=== PATIENT | male | born 1955 | race Caucasian/White ===

== ENCOUNTER → 2018-03-06 | Outpatient (CLI) | payer BC ==
--- NOTE | 2018-03-07 11:21 | PCVCIMAG ---
APPROVED REPORT Study performed: 03/06/2018 15:38:57 Exam: Stress Echocardiogram Indication: CAD s/p CABG, Hypertension, Hyperlipidemia, Dyspnea Patient Location: Echo lab Stress Nurse: Siomara Puri RN Room #: 1 Status: routine Ht: 5 ft 4 in HR: 44 bpm BP: 122/60 mmHg Rhythm: Bifascicular block Medical History Medical History: CAD s/p CABG, Hyperlipidemia,bradycardia,HCL Cardiac Risk Factors: Hyperlipidemia Previous Cardiac Procedures: CABG Pretest Chest Pain Characteristics: No chest pain Exercise History: Physically active Procedure The patient underwent an Exercise Stress Test using the Nathaniel Protocol. Blood pressure, heart rate, and EKG were monitored. An Echocardiogram was performed by robotic maintenance technician in four stages in quad fashion. At peak stress, four selected images were obtained and placed side by side with resting images for comparison. Stress Test Details Stress Test: Exercise stress testing was performed using a Nathaniel protocol. HR Resting HR: 44 bpmMax Heart Rate (APMHR): 157 bpm Max HR Achieved: 153 bpmTarget HR (85% APMHR): 133 bpm % of APMHR: 97 Recovery HR: 71 bpm HR response to stress: Normal HR response to stress BP Resting BP: 122/60 mmHg Max BP: 148/60 mmHg Recovery BP: 134/54 mmHg ECG Resting ECG: Sinus Bradycardia Stress ECG: Sinus Rhythm ST Change: Eqivocally ischemic Arrhythmia: Rare PVCs Recovery ECG: Sinus Rhythm Recovery ST Change: Eqivocally ischemic Recovery Arrhythmia: None Clinical Reason for Termination: Maximal effort Stress Symptoms: none Exercise duration: 13 min sec Highest Stage Achieved: Stage 5: 5.0 mph at 18% grade. Exercise capacity: 17.2 METs Overall Exercise Capacity for Age: Excellent Scale: Active Angina Score: None Stress ECG Conclusion The patient exercised according to the NATHANIEL protocol for 13:00 153mins; achieving a work level of 17.2 METS. The resting heart rate of 44 bpm rosibel to a maximum heart rate of 153 bpm. This value represent 97 % of the maximal, age-predicted heart rate.The resting blood pressure of 122/60mmHg rosibel to a maximum of 148/60 mHg. The exercise test was stopped due to fatigue. Pre-Stress Echo The resting Echocardiogram showed normal left ventricular contractility with an estimated Ejection Fraction of about 55-60%. Normal wall motion in all segments on baseline images. Post-Stress Echo The stress Echocardiogram showed normal left ventricular contractility with an estimated Ejection Fraction of about 65-70%. Normal augmentation of wall motion in all segments on post stress images. Clinical No clinical or ECG evidence for ischemia. Conclusion Clinical Response: Non-ischemic Exercise Capacity: Superior Stress ECG Response: Non-ischemic Stress Echo Images: Non-ischemic Normal stress echocardiogram with maximal exercise stress. No echocardiographic evidence for exercise induced ischemia. No clinical, EKG or echocardiographic evidence for ischemia. <Conclusion> Normal stress echocardiogram with maximal exercise stress. No echocardiographic evidence for exercise induced ischemia. No clinical, EKG or echocardiographic evidence for ischemia.
== END | disposition home or self-care (01) ==
LOC: PCVCIMAG 15:16
PROVIDERS: ATTEND Internal Medicine Cardiovascular Disease
DX: I25.10 Atherosclerotic heart disease of native coronary artery without angina pectoris (principal); R00.1 Bradycardia, unspecified; R06.09 Other forms of dyspnea; I10 Essential (primary) hypertension; E78.5 Hyperlipidemia, unspecified
CPT/HCPCS: 93325; 93351

== ENCOUNTER → 2019-05-23 | Outpatient (CLI) | payer BC, OTHER ==
--- NOTE | 2019-05-23 15:19 | PCVCIMAG ---
APPROVED REPORT Study performed: 05/23/2019 14:00:14 Exam: Stress Echocardiogram Indication: CAD s/p CABG x4 (2004), Hypertension, Hyperlipidemia Patient Location: Echo lab Stress Nurse: Siomara Puri RN Room #: 1 Status: routine Ht: 5 ft 4 in HR: 55 bpm BP: 122/68 mmHg Rhythm: NSR Procedure The patient underwent an Exercise Stress Test using the Bradley Protocol. Blood pressure, heart rate, and EKG were monitored. An Echocardiogram was performed by robotic weld technician in four stages in quad fashion. At peak stress, four selected images were obtained and placed side by side with resting images for comparison. Stress Test Details Stress Test: Exercise stress testing was performed using a Bradley protocol. HR Resting HR: 55 bpmMax Heart Rate (APMHR): 155 bpm Max HR Achieved: 146 bpmTarget HR (85% APMHR): 131 bpm % of APMHR: 94 Recovery HR: 71 bpm HR response to stress: Normal HR response to stress BP Resting BP: 122/68 mmHg Max BP: 160/54 mmHg Recovery BP: 110/50 mmHg BP response to stress: Normal blood pressure response to stress. ECG Resting ECG: Sinus Rhythm Stress ECG: Sinus Rhythm Recovery ECG: Sinus Rhythm Clinical Reason for Termination: Maximal effort Exercise duration: 10 min 24 sec Highest Stage Achieved: Stage 4: 4.2 mph at 16% grade. Exercise capacity: 13.40 METs Overall Exercise Capacity for Age: Excellent Stress ECG Conclusion ECG: Non-ischemic Clinical: Non-ischemic Pre-Stress Echo The resting Echocardiogram showed normal left ventricular contractility with an estimated Ejection Fraction of about >55%. Normal wall motion in all segments on baseline images. Post-Stress Echo The stress Echocardiogram showed normal left ventricular contractility with an estimated Ejection Fraction of about 60-65%. Normal augmentation of wall motion in all segments on post stress images. Clinical No clinical or ECG evidence for ischemia. Trace mitral regurgitation and mild to moderate pulmonic regurgitation. No other valvular abnormalities. Conclusion Clinical Response: Non-ischemic Exercise Capacity: Superior Stress ECG Response: Non-ischemic Stress Echo Images: Non-ischemic No clinical, EKG or echocardiographic evidence for ischemia. Normal stress echocardiogram with maximal exercise stress. Other Information Study Quality: Adequate <Conclusion> No clinical, EKG or echocardiographic evidence for ischemia. Normal stress echocardiogram with maximal exercise stress.
== END | disposition home or self-care (01) ==
LOC: PCVCIMAG 13:35
PROVIDERS: ATTEND Internal Medicine Cardiovascular Disease
DX: I25.10 Atherosclerotic heart disease of native coronary artery without angina pectoris (principal); I10 Essential (primary) hypertension; E78.5 Hyperlipidemia, unspecified; E78.00 Pure hypercholesterolemia, unspecified; Z95.1 Presence of aortocoronary bypass graft
CPT/HCPCS: 93325; 93351